=== PATIENT | male | born 1960 | race Caucasian/White ===

== ENCOUNTER → 2016-06-02 | Outpatient (CLI) | payer BC ==
--- NOTE | ~2016-06-02 | CT4 ---
[facility] A Service of [facility] & [facility] & [facility] RADIOLOGY TEXT RESULTS PATIENT: PENELOPE PULIDO LOCATION: [facility] : 56 UNIT #: [id number] AGE: [address]: Angel Lobo MD SEX: M ORDER DR: [id number] [facility]. [place], [place] [address] [id number] O MR#: [id number] Acc #: [id number] NAME: PENELOPE PULIDO : 1960 SEX: M STUDY DATE/TIME: 06/02/2016 10:26 UNIT: [facility] ROOM: STUDY DESCRIPTION: CT Abd and Pelv Wo Cont Attending Physician: Argentina Lobo M.D. Referring Physician: Argentina Lobo M.D. Ordering Physician: Argentina Lobo M.D. Primary Care Physician: Nika Wayne M.D. MEDICAL IMAGING REPORT This report is preliminary unless electronic signature is present EXAM CT abdomen and pelvis without contrast INDICATION Followup left adrenal lesion. Kidney stones. PROCEDURE Unenhanced CT of the abdomen and pelvis. TECHNIQUE This CT exam was performed with one or more of the following radiation dose reduction techniques: automatic exposure control, adjustment of mA and/or kV according to patient size, and iterative reconstruction. COMPARISON 07/08/2015 FINDINGS ABDOMEN WITHOUT CONTRAST: There is linear scarring or atelectasis in the lingula and left lower lobe. Liver measures 18.2 cm. There is very mild hepatic steatosis. The spleen and pancreas unremarkable. A few tiny stones in the gallbladder but no evidence for active inflammation. Punctate nonobstructing calculus in the lower pole of the right kidney. No radiodense ureteral calculus or hydronephrosis. Bowel loops are nondilated. Appendix is normal. 5.6 cm fat-containing umbilical hernia. 1.8 cm left adrenal nodule. It is stable in size and represented a benign adenoma on the 07/08/2015 study. PELVIS WITHOUT CONTRAST: No radiodense bladder calculus. No pelvic mass. [facility] A Service of [facility] & [facility] & [facility] RADIOLOGY TEXT RESULTS PATIENT: PENELOPE PULIDO [id number] 56 UNIT #: [id number] AGE: [address]: Angel Lobo MD SEX: M ORDER DR: Small fat-containing left inguinal hernia. No aggressive appearing bone lesion. IMPRESSION 1. No acute findings. 2. Stable 1.8 cm benign left adrenal adenoma. 3. Uncomplicated cholelithiasis. 4. Tiny nonobstructing calculus lower pole right kidney. 5. Very mild hepatic steatosis. 6. Fat-containing umbilical hernia. Dictated by... Maxx Deal M.D. THIS IS AN ELECTRONICALLY VERIFIED REPORT Maxx Deal M.D. at 06/03/2016 2:11 PM Alex TD: 06/02/2016 16:09 JOB #: [id number] MEDICAL IMAGING REPORT COPY
== END | disposition home or self-care (01) ==
LOC: CCAT 09:51
DX: D35.02 Benign neoplasm of left adrenal gland (principal); N20.0 Calculus of kidney; K80.20 Calculus of gallbladder without cholecystitis without obstruction; K76.0 Fatty (change of) liver, not elsewhere classified; K42.9 Umbilical hernia without obstruction or gangrene
CPT/HCPCS: 74176

== ENCOUNTER → 2016-06-04 | Outpatient (CLI) | payer BC ==
[2016-06-04 11:11] LABS: URINE CREATININE 86.2 mg/dL
[2016-06-04 11:13] LABS: URINE 24 HOUR CREATININE CALC 1.9 G/24HR (0.7-2.0)
[2016-06-09 11:34] LABS: METANEPHRINES URINE 113 mcg/24 h (90-315); NORMETANEPHRINE URINE 517 mcg/24 h (122-676)
== END | disposition home or self-care (01) ==
LOC: CLAB 08:06
PROVIDERS: Internal Medicine Endocrinology, Diabetes & Metabolism
DX: D35.00 Benign neoplasm of unspecified adrenal gland (principal)
CPT/HCPCS: 82384; 82570; 83835